=== PATIENT | female | born 1980 | race Caucasian/White ===

== ENCOUNTER → 2023-10-19 08:55 | Outpatient (REF) | payer OTHER, SELFPAY ==
[2023-10-19 09:59] LABS: Hematocrit 38.9 % (37.0-47.0); Hemoglobin 13.2 g/dL (12.0-16.0); Mean Corp Hgb Conc. 33.9 g/dL (33.0-37.0); Mean Corpuscular Hgb 31.7 pg (27.0-31.0); Mean Corpuscular Volume 93.3 fL (81.0-99.0); Mean Platelet Volume 9.4 fL (7.4-10.4); Platelet Count 293 10^3/uL (130-400); Red Blood Cell Count 4.17 10^6/uL (4.20-5.40); White Blood Cell Count 6.6 10^3/uL (4.8-10.8)
[2023-10-19 10:35] LABS: ALT (SGPT) 13 U/L (0-35); AST (SGOT) 19 U/L (14-36); Albumin 4.2 g/dl (3.5-5.0); Alkaline Phosphatase 61 U/L (38-126); Blood Urea Nitrogen 15 mg/dl (7-17); Calcium 9.1 mg/dl (8.4-10.2); Carbon Dioxide 26 mmol/L (22-30); Chloride 104 mmol/L (98-107); Glucose 85 mg/dl (70-99); Potassium 4.3 mmol/L (3.5-5.1); Sodium 138 mmol/L (135-145); Total Bilirubin 0.4 mg/dl (0.2-1.3); Total Protein 6.5 g/dl (6.3-8.2); eGFR > 60.00
[2023-10-19 10:48] LABS: Vitamin D, 25-OH*** 52.4 ng/mL (30-80)
[2023-10-19 11:01] LABS: TSH 2.86 uIU/ml (0.47-4.68)
[2023-10-19 11:29] LABS: Erythrocyte Sed Rate 10 mm/hour (0-20)
[2023-10-19 11:37] LABS: Folate > 20.0 ng/ml (2.76-20); Vitamin B12 715 pg/ml (239-931)
[2023-10-21 16:39] LABS: Lyme Antibody Screen, EIA Negative (Negative)
== END ==
LOC: RCS 08:55
PROVIDERS: ATTENDING PHYSICIAN Neurological Surgery; FAMILY PHYSICIAN Physician Assistant Medical
DX: G40.909 Epilepsy, unspecified, not intractable, without status epilepticus (principal); R53.81 Other malaise; R42 Dizziness and giddiness; G44.209 Tension-type headache, unspecified, not intractable; R53.1 Weakness
CPT/HCPCS: 36415; 80053; 82306; 82607; 82746; 84443; 85027; 85652; 86618; 93005

== ENCOUNTER → 2023-10-24 07:32 | Outpatient (REF) | payer OTHER, SELFPAY | LOC: EEG 07:32 | PROVIDERS: ATTENDING PHYSICIAN Neurological Surgery; FAMILY PHYSICIAN Physician Assistant Medical | DX: G40.909 Epilepsy, unspecified, not intractable, without status epilepticus (principal); R42 Dizziness and giddiness; R53.1 Weakness | CPT/HCPCS: 95816 ==

== ENCOUNTER → 2023-11-07 17:30 | Outpatient (REF) | payer OTHER, SELFPAY | LOC: HWWDC 17:30 | PROVIDERS: ATTENDING PHYSICIAN Nurse Practitioner Adult Health; FAMILY PHYSICIAN Physician Assistant Medical | DX: Z12.31 Encounter for screening mammogram for malignant neoplasm of breast (principal) | CPT/HCPCS: 77063; 77067 ==

== ENCOUNTER → 2023-11-13 20:22 | Outpatient (REF) | payer OTHER, SELFPAY | LOC: MRI 20:22 | PROVIDERS: ATTENDING PHYSICIAN Neurological Surgery; FAMILY PHYSICIAN Physician Assistant Medical | DX: G40.909 Epilepsy, unspecified, not intractable, without status epilepticus (principal); E34.8 Other specified endocrine disorders; R53.81 Other malaise; R42 Dizziness and giddiness; G44.229 Chronic tension-type headache, not intractable; R53.1 Weakness | CPT/HCPCS: 70553; A9575 ==

== ENCOUNTER → 2023-11-14 13:50 | Outpatient (REF) | payer OTHER, SELFPAY | LOC: HWRAD 13:50 | PROVIDERS: ATTENDING PHYSICIAN Nurse Practitioner Adult Health; FAMILY PHYSICIAN Physician Assistant Medical | DX: N93.9 Abnormal uterine and vaginal bleeding, unspecified (principal) | CPT/HCPCS: 76830; 76856 ==

== ENCOUNTER → 2023-12-05 14:14 | Outpatient (REF) | payer OTHER, SELFPAY | LOC: RAD 14:14 | PROVIDERS: ATTENDING PHYSICIAN Otolaryngology; FAMILY PHYSICIAN Physician Assistant Medical | DX: J32.0 Chronic maxillary sinusitis (principal) | CPT/HCPCS: 70486 ==